=== PATIENT | male | born 1945 | race Caucasian/White ===

== ENCOUNTER 2016-12-19 17:53 | Observation (INO) | payer OTHER ==
[2016-12-19] MEDS ORDERED: Acetaminophen TAB* 325 MG PO ONE (18:31)
[2016-12-19] MEDS ORDERED: Ondansetron INJ* 2 MG/ML VIAL IV ONE (18:31)
[2016-12-19] MEDS ORDERED: Vancomycin(*) 1,000 MG in NS 0.9% 250 ML* 250 ML IVPB ONE (18:33)
[2016-12-19] MEDS ORDERED: Cefepime(*) 2 GM in NS 0.9% 50 ML* 50 ML IVPB ONE (18:33)
[2016-12-19] MEDS ORDERED: NS 0.9% 1000 ML*IV.FLUID IV ONE (18:38)
[2016-12-19 18:49] LABS: Hematocrit 44 % (42-52); Mean Corpuscular HGB Conc 34 g/dl (31-36); Mean Corpuscular Hemoglobin 32 pg (27-31); Mean Corpuscular Volume 95 fL (80-94); Mean Platelet Volume 8 um3 (7.4-10.4); Red Blood Count 4.68 10^6/ul (4.0-5.4); Red Cell Distribution Width 15 % (10.5-15); White Blood Count 15.2 10^3/ul (3.5-10.8)
[2016-12-19 19:05] LABS: ALT 12 U/L (7-52); Albumin 4.1 g/dL (3.2-5.2); Alkaline Phosphatase 48 U/L (34-104); BUN/Creatinine Ratio 17.4 (8-20); Blood Urea Nitrogen 19 mg/dL (6-24); C Reactive Protein 2.86 mg/L (< 5.00); CO2 Carbon Dioxide 25 mmol/L (22-32); Chloride 103 mmol/L (101-111); Creatine Kinase 43 U/L (10-223); EGFR African American 85.8 (>60); EGFR Non-African American 66.7 (>60); Glucose 102 mg/dL (70-100); Sodium 135 mmol/L (133-145); Total Protein 7.1 g/dL (6.4-8.9)
[2016-12-19 19:25] LABS: Anion Gap 7 mmol/L (2-11)
[2016-12-19 19:32] LABS: Erythrocyte Sed Rate 10 mm/Hr (0-40)
--- NOTE | 2016-12-19 19:32 | RAD ---
INDICATION: Near syncope. COMPARISON: June 10, 2013 TECHNIQUE: Dual energy PA and routine lateral views of the chest were obtained. REPORT: Mild prominence of interstitial markings. No pulmonary infiltrate, focal pulmonary lesion, pleural effusion, pneumothorax. The heart, pulmonary vasculature, and mediastinal contours are unremarkable. IMPRESSION: No evidence for acute intrathoracic disease.
[2016-12-19] MEDS ORDERED: Acetaminophen TAB* 325 MG PO PRN (22:39)
[2016-12-19] MEDS ORDERED: Ondansetron INJ* 2 MG/ML VIAL IV PRN (22:39)
[2016-12-19] MEDS ORDERED: traMADol TAB* 50 MG PO PRN (22:41)
[2016-12-19] MEDS ORDERED: NS 0.9% 1000 ML* 1,000 ML IV SCH (22:45)
[2016-12-19 23:18] LABS: TSH (Thyroid Stimulating Horm) 2.49 mcIU/mL (0.34-5.60)
[2016-12-20 00:26] LABS: Urine Bilirubin Negative (Negative); Urine Glucose Negative (Negative); Urine Nitrite Negative (Negative)
--- NOTE | 2016-12-20 00:28 | HP ---
CC: Dr. Bush * HISTORY AND PHYSICAL: DATE OF ADMISSION: 12/19/16 PRIMARY CARE PROVIDER: Dr. Bush. CHIEF COMPLAINT: Nausea and vomiting. HISTORY OF PRESENT ILLNESS: Mr. Draper is a 71-year-old male who approximately 9 days ago had what sounds to be a sebaceous cyst removed from his upper back/ lower neck. This was reportedly sutured closed. The patient was instructed to return today to Dr. Bush's office for removal of the sutures. The patient had the sutures removed and he felt that perhaps there had been some drainage out of the cavity. He believes this to be the case as he felt the nurse dabbing at his back, soaking up some liquid. The patient left Dr. Bush's office to go help a friend work on a truck when he began to have severe intractable vomiting and nausea. The patient then began to have uncontrolled shaking and was sweating. At that point, he decided to come back to the emergency room for evaluation. In the ER, the patient was found to be febrile at 103.3 on arrival. The patient's incision was inspected. This was opened. A cavity was present. Reportedly, a copious amount of very foul smelling purulent material was expressed from the wound. At this point, the patient states that he is feeling much improved and has no issues. PAST MEDICAL HISTORY: 1. Gout. 2. RA. 3. History of PMR. 4. AFib. 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 6. GERD. 7. KACEY. 8. Hypertension. PAST SURGICAL HISTORY: 1. Deviated septum repaired at age 19. 2. Nasal cancer removal greater than 40 years ago. 3. Left eye surgery. 4. Partial colectomy for precancerous polyps. MEDICATIONS: 1. Tramadol 50 mg p.o. q.6 hours p.r.n. pain. 2. Metoprolol XL 25 mg p.o. daily. 3. Methotrexate 6 tabs (15 mg) p.o. weekly. 4. Lisinopril 10 mg p.o. daily. 5. Folic acid 1 mg p.o. daily. 6. Eliquis 5 mg p.o. b.i.d. 7. Allopurinol 300 mg p.o. daily. 8. Ranitidine 150 mg p.o. b.i.d. ALLERGIES: No known drug allergies. FAMILY HISTORY: Both parents are . He is unaware of their medical history. SOCIAL HISTORY: The patient is a nonsmoker. He does not drink alcohol. 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 He is , he has 3 children. He indicates that his daughterNamita would be his healthcare proxy. REVIEW OF SYSTEMS: The patient denies any fevers. He does admit to the shaking chills today. No anorexia. No chest pain. No palpitations. No cough. No shortness of breath. He admits to the nausea and vomiting as above. He does have occasional diarrhea at baseline. No abdominal pain. No hematochezia. No hematuria. No dysuria. No focal weakness or sensory loss. No sudden changes in vision. No dysphagia. No joint pains or muscle pains out of the ordinary. No rashes. No anxiety or depression. PHYSICAL EXAMINATION GENERAL: The patient is a well-developed, elderly male, sitting in the stretcher in no acute distress. VITAL SIGNS: Blood pressure 86/55, pulse 74, respirations 14, temp 99.5, T-max 103.3, O2 sat 96% on 2 L. HEENT: Pupils are equal, they are round. Extraocular muscles are intact. The patient appears to have mild exophthalmos. Oropharynx is clear. Oral mucosa is moist. There is no submandibular, cervical, or supraclavicular adenopathy. Thyroid is not enlarged. No thyroid nodules are noted. PULMONARY: Lungs are clear to auscultation bilaterally. CARDIAC: Normal S1 and S2. Regular rate and rhythm. I do not appreciate any murmurs. ABDOMEN: Bowel sounds are present. Abdomen is soft, nontender, and nondistended. MUSCULOSKELETAL: There is no cyanosis or clubbing of the digits. There is full active range of motion of all 4 extremities. SKIN: Warm and dry. There are no rashes. The patient has an approximately 3/ 4 of an inch to 1 inch vertical incision, midline of the upper back/lower neck. There is mild erythema surrounding this. No purulent material is able to be expressed at this time. NEUROLOGIC: Cranial nerves II through XII are grossly intact. Sensation is intact to light touch throughout. Strength is 5/5 and symmetric in both upper and lower extremities bilaterally. PSYCH: The patient is alert. He is oriented x3. Affect appears appropriate. DIAGNOSTIC STUDIES/LAB DATA: WBC 15.2, hemoglobin 15.0, hematocrit 44, platelets 165. INR 0.98, PTT 28.5. Sodium 135, potassium 4.2, chloride 103, CO2 25, BUN 19, creatinine 1.09, glucose 102, lactic acid 1.1, calcium 9.0, bilirubin 0.9, AST 16, ALT 12, alk phos 48, CPK 43, troponin 0, CRP 2.86, BNP 50 , albumin 4.1. Chest x-ray, no acute intrathoracic disease. EKG reveals normal sinus rhythm without any acute ST-T wave abnormalities. ASSESSMENT AND PLAN: Mr. Draper is a 71-year-old male with a history of rheumatoid arthritis, on methotrexate at baseline, past history of polymyalgia rheumatica, atrial fibrillation, hypertension and obstructive sleep apnea, who presents to the emergency room with intractable nausea and vomiting, which has now since resolved, but was found to have likely cellulitis associated with recent (question sebaceous) cyst removal. 1. Cellulitis and abscess. I suspect the patient likely developed mild infection within the cyst cavity. I found as if when the sutures were removed, copious amount of purulent material was able to be expressed from that cavity. Culture has been sent. Gram-stain reveals 3+ Gram positive cocci. This is Staph aureus and MRSA negative. The patient did have associated severe sepsis with the cellulitis as evidenced by sepsis 2 criteria including tachycardia, fever, leukocytosis, and hypotension. The patient received 2 L of normal saline bolus while in the emergency room. The patient's hypotension has since resolved. Blood cultures have been sent. Lactic acid was normal. The patient was started in the emergency room on vancomycin and cefepime; however, I will downgrade this to cefazolin 2 g IV q.8 hours for now. We can await the culture data. If the patient remains afebrile and continues to show improvement in his labs and vital signs, perhaps he can be discharged home tomorrow. Based on sepsis 3 criteria, the patient does not meet for sepsis as his sepsis score is only 1. However, the [place] [employer] surviving sepsis campaign indicators were met. 2. Hypertension. Again, likely this is related to the patient's infection. Subsequent blood pressure while I was in the patient's room was normal at 130/ 60s. The patient does not feel lightheaded or dizzy at this point. He did receive again 2 L bolus normal saline in the emergency room and will continue on 100 mL per hour for 1 more liter. 3. Nausea and vomiting. This has resolved. I suspect this was related to his infection. We will monitor his symptoms. Zofran will be ordered. 4. Hypertension. The patient's blood pressure earlier in the ER was low, now improved. I will order his usual home antihypertensives; however, I have added hold parameters to these. 5. Atrial fibrillation. Currently, the patient is in normal sinus rhythm. He will be maintained on his usual dose of metoprolol XL and Eliquis. 6. Rheumatoid arthritis. The patient ordinarily takes methotrexate. This likely should be held for the next 1 week, then he can resume this as his infection will likely have improved by that time. 7. DVT prophylaxis. According to the Adult Thrombosis Prophylaxis Risk Factor Assessment Guide, the patient has a total risk factor score of 5, making him high risk. He is already on Eliquis and this will act as his DVT prophylaxis. 8. Code status is full. TIME SPENT: Sixty-five minutes were spent admitting this patient. [id number]/[facility] #: [id number] VIVIENNE
[2016-12-20] MEDS: ceFAZolin 2 GM PREMIX (*) 50 ML IVPB SCH ×2 (05:59→13:20)
[2016-12-20] MEDS ORDERED: ceFAZolin 2 GM PREMIX (*) 100 ML IVPB SCH (06:00)
[2016-12-20] MEDS ORDERED: Metoprolol Succinate XL TAB* 25 MG PO SCH (09:00)
[2016-12-20] MEDS ORDERED: Lisinopril TAB* 10 MG PO SCH (09:00)
[2016-12-20] MEDS ORDERED: Allopurinol TAB* 300 MG PO SCH (09:00)
[2016-12-20] MEDS ORDERED: Apixaban* 5 MG TAB PO SCH (09:00)
[2016-12-20] MEDS ORDERED: Famotidine TAB* 20 MG PO SCH (09:00)
[2016-12-20] MEDS ORDERED: Folic Acid TAB* 1 MG PO SCH (09:00)
[2016-12-20 16:45] VITALS: BP 115/59
[2016-12-20 17:06] LABS: Hematocrit 42 % (42-52); Hemoglobin 14.2 g/dl (14.0-18.0); Mean Corpuscular HGB Conc 34 g/dl (31-36); Mean Corpuscular Hemoglobin 33 pg (27-31); Mean Corpuscular Volume 96 fL (80-94); Mean Platelet Volume 8 um3 (7.4-10.4); Red Blood Count 4.39 10^6/ul (4.0-5.4); Red Cell Distribution Width 15 % (10.5-15)
--- NOTE | 2016-12-20 17:54 | PN ---
Subjective Date of Service: 12/20/16 Interval History: Patient seen and examined at bedside. Denies fever, chills, shortness of breath , chest discomfort, N/V/D. Pt states that he feels much better today, then he did yesterday. He is very anxious to be discharged. Family History: Unchanged from Admission Social History: Unchanged from Admission Past Medical History: Unchanged from Admission Objective Active Medications: Acetaminophen (Tylenol Tab*) 650 mg PO Q4H PRN Reason: PAIN Allopurinol (Zyloprim Tab*) 300 mg PO DAILY RENATO Apixaban (Eliquis*) 5 mg PO BID RENATO mg Famotidine (Pepcid Tab*) 20 mg PO BID RENATO Folic Acid (Folvite Tab*) 1 mg PO DAILY RENATO Cefazolin Sodium/Dextrose (Kefzol 2 Gm Premix(*)) 50 mls @ 100 mls/hr IVPB Q8H RENATO Lisinopril (Prinivil Tab*) 10 mg PO DAILY RENATO Metoprolol Succinate (Toprol Xl Tab*) 25 mg PO DAILY RENATO Ondansetron HCl (Zofran Inj*) 4 mg IV Q6H PRN Reason: NAUSEA Tramadol HCl (Ultram*) 50 mg PO Q6HR PRN Reason: PAIN Vital Signs 12/19/16 12/19/16 12/20/16 23:41 23:45 00:43 Temperature 98.3 F 98.3 F Pulse Rate 70 70 Respiratory 20 20 20 Rate Blood Pressure 118/64 118/64 (mmHg) O2 Sat by Pulse 99 99 99 Oximetry 12/20/16 12/20/16 12/20/16 03:19 07:37 07:50 Temperature 98.2 F 97.6 F Pulse Rate 60 57 Respiratory 16 20 Rate Blood Pressure 113/44 107/44 (mmHg) O2 Sat by Pulse 100 100 100 Oximetry 12/20/16 12/20/16 12/20/16 07:55 12:27 15:24 Temperature 98.0 F 98.1 F Pulse Rate 57 67 Respiratory 21 18 Rate Blood Pressure 102/46 115/59 (mmHg) O2 Sat by Pulse 96 98 Oximetry Oxygen Devices in Use Now: None Appearance: NAD, sitting up on the side of the bed Ears/Nose/Mouth/Throat: Mucous Membranes Moist Respiratory: Symmetrical Chest Expansion and Respiratory Effort, Clear to Auscultation Cardiovascular: NL Sounds; No Murmurs; No JVD, RRR Abdominal: NL Sounds; No Tenderness; No Distention Extremities: No Edema Skin: - - ~ 3/4 to 1 inch incision to the midline of his upper back, mild eryethema noted around the incision. The incision is open with a pocket ~ 1 cm deep and undermining ~ 1 cm from 1 to 5 o'clock Neurological: Alert and Oriented x 3, NL Muscle Strength and Tone Lines/Tubes/Other Access: Clean, Dry and Intact Peripheral IV - site benign Result Diagrams: 12/20/16 16:53 12/19/16 19:30 Assess/Plan/Problems-Billing Assessment: Mr. Draper is a 71 yo male with PMH significant for RA on methotrexate, PMR, afib, HTN and KACEY who presented to the emergency room with intractable nausea and vomiting. He was found to have likely cellulitis associated with recent cyst removal. - Patient Problems (1) Cellulitis and abscess of trunk Code(s): L03.319 - CELLULITIS OF TRUNK, UNSPECIFIED; L02.219 - CUTANEOUS ABSCESS OF TRUNK, UNSPECIFIED SNOMED Code(s): 069031497 Comment: - Suspect this is a mild infection within the cyst cavity - Afebrile since admission and leukocytosis resolved - Wound culture negative day 1, but with 3+ gram positive cocci, staph aureus and MRSA negative - Blood cultures pending - Change to clindamycin - Daily packing changes (2) Sepsis Comment: - Meeting SIRS criteria on admission with tachycardia, fever and leukocytosis - Not meeting qSofa criteria on admission, 1 point (low BP) - Resolved (3) Nausea and vomiting Code(s): R11.2 - NAUSEA WITH VOMITING, UNSPECIFIED SNOMED Code(s): 01804136 Comment: - Resolved (4) HTN (hypertension) Code(s): I10 - ESSENTIAL (PRIMARY) HYPERTENSION SNOMED Code(s): 89211340 Comment: - Hypotensive at times - SBP 80-130's - Continue Lisinopril (5) Paroxysmal a-fib Code(s): I48.0 - PAROXYSMAL ATRIAL FIBRILLATION SNOMED Code(s): 713494719 Comment: - Heart rate regular - Continue metoprolol and eliquis (6) Rheumatoid arthritis Current Visit: No Status: Chronic Code(s): M06.9 - RHEUMATOID ARTHRITIS, UNSPECIFIED SNOMED Code(s): 14244959 Comment: - Hold methotrexate for at least a week (7) DVT prophylaxis Code(s): BUH2936 - SNOMED Code(s): 126682758 Comment: - Continue Eliquis (8) Full code status Code(s): Z78.9 - OTHER SPECIFIED HEALTH STATUS SNOMED Code(s): 202492837 Status and Disposition: OBV. Stable for discharge to home today.
--- NOTE | 2016-12-20 21:51 | ED ---
Emanuel Jorgensen Angela, scribed for Elli Aranda MD on 12/19/16 at 2035 . Progress - Progress Note Progress Note: This pt is a 71 y/o male presenting to [facility] c/o N/V since earlier today. He states he had a fever earlier today. He reports a recent I&D by his PCP on a cyst on his upper back about 9 days ago. PMHx: HTN. Pt denies diabetes, cardiac disease. This pt was signed out from Dr. William, pending disposition, awaiting chest XR. Pt will be admitted in stable condition. - Results/Orders Results/Orders: Chest XR (as read by the radiologist): IMPRESSION: No evidence for acute intrathoracic disease. ED physician has reviewed this radiology report and agrees. Re-Evaluation - Re-Evaluation First Eval Re-Evaluation Time: 22:00 Course/Dx - Diagnoses Provider Diagnoses: Cellulitis - Provider Notifications Discussed Care Of Patient With: Ileana Womack Time Discussed With Above Provider: 20:04 Instructed by Provider To: Admit As Inpatient - I discussed the pt's case with Dr. Womack. She has agreed to admit the pt. The documentation as recorded by the Emanuel briscoe Angela accurately reflects the service I personally performed and the decisions made by , Elli Aranda MD.
--- NOTE | 2016-12-21 04:16 | DS ---
CC: Dr. Bush * DISCHARGE SUMMARY: DATE OF ADMISSION: 12/19/16 DATE OF DISCHARGE: 12/20/16 ATTENDING PHYSICIAN: Dr. Nirmal Miranda * (dictated by Maureen Weinberg NP) PRIMARY CARE PROVIDER: Dr. Clarence Bush. PRIMARY DIAGNOSES: 1. Cellulitis with abscess. 2. Sepsis according to the [place] sepsis campaign, resolved. 3. Intractable nausea, vomiting, resolved. SECONDARY DIAGNOSES: 1. Hypertension. 2. Paroxysmal atrial fibrillation. 3. Rheumatoid arthritis. STUDIES WHILE IN THE HOSPITAL: Chest x-ray on 12/19/16. Radiologist impression : No evidence for acute intrathoracic disease. DISCHARGE MEDICATIONS: New home medications: 1. Clindamycin 300 mg oral 3 times daily for 10 days. 2. Ranitidine 150 mg oral twice daily. 3. Allopurinol 300 mg oral daily. 4. Eliquis 5 mg oral twice daily. 5. Folic acid 1 mg oral daily. 6. Lisinopril 10 mg oral daily. 7. Metoprolol succinate 25 mg oral daily. 8. Tramadol 50 mg oral every 6 hours as needed for pain. HISTORY OF PRESENT ILLNESS/HOSPITAL COURSE: Mr. Draper is a 71-year-old male with past medical history significant for rheumatoid arthritis, history of polymyalgia rheumatica, atrial fibrillation, GERD, KACEY, and hypertension, who approximately 9 days ago had a cyst removed from his upper back. It was sutured closed. The patient reports being instructed to return to Dr. Bush's office for suture removal on his day of admission. The sutures were removed and I believe there was some sort of drainage out of the cavity. The patient reports he is unaware of what the drainage look like. He left Dr. Bush's office and developed severe intractable nausea and vomiting. The patient also began to have uncontrolled shaking and sweating. At that point, he decided to come back to the emergency room for further evaluation. While in the emergency room, the patient was found to be febrile with a temperature of 103.3 on arrival. The patient's incision was inspected and opened. There was a cavity present with reportedly a copious amount of foul smelling purulent material expressed from the wound. A wound culture was obtained. The patient was initially treated with vancomycin and cefepime. Blood cultures were obtained. The patient was noted to have leukocytosis with the white blood cell count of 15.2. His other labs were fairly unremarkable. He had a chest x-ray showing no acute disease. He had an EKG showing normal sinus rhythm. Hospitalists were asked to evaluate the patient for admission. While in the hospital, the patient continued to improve and feel better. Again , his nausea and vomiting had been resolved since in the emergency room. His blood pressures were slightly hypotensive, although they were improved throughout his stay. He had repeat blood work showing no resolution of his leukocytosis today. In addition, the patient was afebrile since his admission. He had a lactic acid that was normal. It is to note that upon initial presentation that he was meeting SIRS criteria with leukocytosis, fever, and tachycardia. He was not meeting a sepsis criteria based on sepsis 3 criteria. His score was only 1. However, he was meeting the [place] surviving sepsis campaign indicators. The patient's erythema around his incision continued to improve. The wound was probed and was found to be approximately 1 cm deep with an approximate 1 cm undermining area from approximately 1 o'clock to 5 o'clock. Packing was placed in the patient's wound. Mr. Draper is stable for discharge to home today. Vital signs are as follows: Temperature 98.1, heart rate 67, respiratory rate 18, O2 sat 98% on room air, blood pressure 115/59. DISCHARGE PLAN: Mr. Draper will be discharged to home today. Activity as tolerated. Regular diet. As far as the patient's cellulitis with abscess, he has packing in place. This should be changed daily. I did instruct his daughter on how to do this in the event that she needs to do packing changes. The patient was also placed on clindamycin 300 mg oral 3 times daily for 10 days. He has a followup appointment with Dr. Arizmendi on 12/21/16, at 12 p.m. for a followup appointment and packing change. There was a tentative plan made at the time of discharge to possibly set the patient up with a nurse visit on Friday for another packing change as there were no provider appointments available for Friday. As far as the patient's history of rheumatoid arthritis, he should hold his methotrexate for at least 1 week while he recovers from this infection. As far as the atrial fibrillation, he has been continued on his metoprolol and Eliquis. For the patient's history of hypertension, he has been continued on his lisinopril. For the patient's history of gout, he is continued on his allopurinol. For the patient's history of GERD, he has been continued on his home ranitidine. The patient has been asked to return to the emergency room for any chest pain, shortness of breath, or concerns for reoccurrence of his infection if he is unable to get into his primary care doctor's office. This is a summarized report of a complex medical history and hospital stay. For further details, please see the entire medical record. TIME SPENT: Time for this discharge was approximately 60 minutes, greater than half of that was spent [id number] with the patient and his daughter discussing discharge plans and instructions in addition to demonstrating how to do a packing change. CONDITION ON DISCHARGE: Stable. MAUREEN WEINBERG NP [id number]/[facility] #: [id number] VIVIENNE
--- NOTE | 2016-12-21 18:32 | ED ---
Chidi Jorgensen Alfonso, scribed for Oneil William MD on 12/19/16 at 1830 . Complex/Multi-Sys Presentation - HPI Summary HPI Summary: This patient is a 71 year old M presenting to [facility] with a chief complaint of N/ V since earlier today. The patient rates the pain 0/10 in severity. Symptoms aggravated by nothing. Symptoms alleviated by nothing. Patient reports fever, and chills. He reports a recent I&D at his upper back. - History Of Current Complaint Chief Complaint: EDNauseaVomitDiarrh Hx Obtained From: Patient Onset/Duration: Sudden Onset, Lasting Hours, Still Present Timing: Constant Aggravating Factor(s): nothing Alleviating Factor(s): nothing Associated Signs And Symptoms: Positive: Nausea, Vomiting, Fever Related History: Similar Episode/Diagnosed As: - chills - Allergies/Home Medications Allergies/Adverse Reactions: Allergies Allergy/AdvReac Type Severity Reaction Status Date / Time No Known Allergies Allergy Verified 12/19/16 18:51 PMH/Surg Hx/FS Hx/Imm Hx Cardiovascular History: Reports: Hx Hypertension - ON DAILY MEDS, Other Cardiovascular Problems/Disorders - Hx ATRIAL FIB, ON COUMADIN GI History: Reports: Hx Gastroesophageal Reflux Disease - DAILY MEDS Musculoskeletal History: Reports: Hx Arthritis Sensory History: Reports: Hx Hearing Aid - BILATERAL, NONE ON SURGERY DAY Neurological History: Reports: Other Neuro Impairments/Disorders - 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 2011 SMALL BOWEL RESECTION, PRE CANCER CELLS RT [facility]. 2000s BLADDER BIOPSY [facility] Hx Anesthesia Reactions: No Infectious Disease History: No Infectious Disease History: Denies: Traveled Outside the [place] in Last 30 Days - Family History Known Family History: Positive: Other - R&NC - Social History Alcohol Use: Occasionally Alcohol Amount: a couple of beers a day Substance Use Type: Reports: None Smoking Status (MU): Never Smoked Tobacco Have You Smoked in the Last Year: No Review of Systems Positive: Fever, Chills Positive: Vomiting, Nausea All Other Systems Reviewed And Are Negative: Yes Physical Exam - Summary Physical Exam Summary: VITAL SIGNS: Reviewed. GENERAL: Patient is a well-developed and nourished male who is lying comfortable in the stretcher. Patient is not in any acute respiratory distress. HEAD AND FACE: No signs of trauma. No ecchymosis, hematomas or skull depressions. No sinus tenderness. EYES: PERRLA, EOMI x 2, No injected conjunctiva, no nystagmus. EARS: Hearing grossly intact. Ear canals and tympanic membranes are within normal limits. MOUTH: Oropharynx within normal limits. NECK: Supple, trachea is midline, no adenopathy, no JVD, no carotid bruit, no c- spine tenderness, neck with full ROM. CHEST: Symmetric, no tenderness at palpation LUNGS: Clear to auscultation bilaterally. No wheezing or crackles. CVS: Tachycardia. Regular rhythm, S1 and S2 present, no murmurs or gallops appreciated. ABDOMEN: Soft, non-tender. No signs of distention. No rebound no guarding, and no masses palpated. Bowel sounds are normal. EXTREMITIES: FROM in all major joints, no edema, no cyanosis or clubbing. NEURO: Alert and oriented x 3. No acute neurological deficits. Speech is normal and follows commands. SKIN: Dry and warm. Wound at upper back where a sebaceous cyst was removed with purulent discharge, foul odor, and erythema. Triage Information Reviewed: Yes Vital Signs On Initial Exam: Initial Vitals Temp Pulse Resp BP Pulse Ox 103.3 F 99 16 134/74 94 12/19/16 18:00 12/19/16 18:00 12/19/16 18:00 12/19/16 18:00 12/19/16 18:00 Vital Signs Reviewed: Yes - Deep Coma Scale Coma Scale Total: 15 Diagnostics - Vital Signs Vital Signs Temp Pulse Resp BP Pulse Ox 12/19/16 18:02 89 93 12/19/16 18:00 103.3 F 99 16 134/74 94 - Laboratory Lab Results: Lab Results 12/19/16 12/19/16 12/19/16 Range/Units 18:40 18:40 18:40 WBC (3.5-10.8) 10^3/ul RBC (4.0-5.4) 10^6/ul Hgb (14.0-18.0) g/dl Hct (42-52) % MCV (80-94) fL MCH (27-31) pg MCHC (31-36) g/dl RDW (10.5-15) % Plt Count (150-450) 10^3/ul MPV (7.4-10.4) um3 Neut % (Auto) (38-83) % Lymph % (Auto) (25-47) % Walker % (Auto) (1-9) % Eos % (Auto) (0-6) % Baso % (Auto) (0-2) % Absolute Neuts (auto) (1.5-7.7) 10^3/ul Absolute Lymphs (auto) (1.0-4.8) 10^3/ul Absolute Monos (auto) (0-0.8) 10^3/ul Absolute Eos (auto) (0-0.6) 10^3/ul Absolute Basos (auto) (0-0.2) 10^3/ul Absolute Nucleated RBC 10^3/ul Nucleated RBC % ESR (0-40) mm/Hr INR (Anticoag Therapy) 0.98 (0.89-1.11) APTT 28.5 (26.0-36.3) seconds Fibrinogen 368 (110.8-404.3) mg/dL Sodium 135 (133-145) mmol/L Potassium TNP Chloride 103 (101-111) mmol/L Carbon Dioxide 25 (22-32) mmol/L Anion Gap 7 (2-11) mmol/L BUN 19 (6-24) mg/dL Creatinine 1.09 (0.67-1.17) mg/dL Est GFR ( Amer) 85.8 (>60) Est GFR (Non-Af Amer) 66.7 (>60) BUN/Creatinine Ratio 17.4 (8-20) Glucose 102 H (70-100) mg/dL Lactic Acid (0.5-2.0) mmol/L Calcium 9.0 (8.6-10.3) mg/dL Total Bilirubin 0.90 (0.2-1.0) mg/dL AST TNP ALT 12 (7-52) U/L Alkaline Phosphatase 48 (34-104) U/L Total Creatine Kinase 43 (10-223) U/L Troponin I 0.00 (<0.04) ng/mL C-Reactive Protein 2.86 (< 5.00) mg/L B-Natriuretic Peptide 50 ( - 100) pg/mL Total Protein 7.1 (6.4-8.9) g/dL Albumin 4.1 (3.2-5.2) g/dL Globulin 3.0 (2-4) g/dL Albumin/Globulin Ratio 1.4 (1-3) TSH 2.49 (0.34-5.60) mcIU/mL 12/19/16 12/19/16 12/19/16 Range/Units 18:40 18:40 19:30 WBC 15.2 H (3.5-10.8) 10^3/ul RBC 4.68 (4.0-5.4) 10^6/ul Hgb 15.0 (14.0-18.0) g/dl Hct 44 (42-52) % MCV 95 H (80-94) fL MCH 32 H (27-31) pg MCHC 34 (31-36) g/dl RDW 15 (10.5-15) % Plt Count 165 (150-450) 10^3/ul MPV 8 (7.4-10.4) um3 Neut % (Auto) 92.4 H (38-83) % Lymph % (Auto) 2.8 L (25-47) % Walker % (Auto) 4.6 (1-9) % Eos % (Auto) 0 (0-6) % Baso % (Auto) 0.2 (0-2) % Absolute Neuts (auto) 14.0 H (1.5-7.7) 10^3/ul Absolute Lymphs (auto) 0.4 L (1.0-4.8) 10^3/ul Absolute Monos (auto) 0.7 (0-0.8) 10^3/ul Absolute Eos (auto) 0 (0-0.6) 10^3/ul Absolute Basos (auto) 0 (0-0.2) 10^3/ul Absolute Nucleated RBC 0 10^3/ul Nucleated RBC % 0 ESR 10 (0-40) mm/Hr INR (Anticoag Therapy) (0.89-1.11) APTT (26.0-36.3) seconds Fibrinogen (110.8-404.3) mg/dL Sodium (133-145) mmol/L Potassium 4.2 Chloride (101-111) mmol/L Carbon Dioxide (22-32) mmol/L Anion Gap (2-11) mmol/L BUN (6-24) mg/dL Creatinine (0.67-1.17) mg/dL Est GFR ( Amer) (>60) Est GFR (Non-Af Amer) (>60) BUN/Creatinine Ratio (8-20) Glucose (70-100) mg/dL Lactic Acid 1.1 (0.5-2.0) mmol/L Calcium (8.6-10.3) mg/dL Total Bilirubin (0.2-1.0) mg/dL AST 16 ALT (7-52) U/L Alkaline Phosphatase (34-104) U/L Total Creatine Kinase (10-223) U/L Troponin I (<0.04) ng/mL C-Reactive Protein (< 5.00) mg/L B-Natriuretic Peptide ( - 100) pg/mL Total Protein (6.4-8.9) g/dL Albumin (3.2-5.2) g/dL Globulin (2-4) g/dL Albumin/Globulin Ratio (1-3) TSH (0.34-5.60) mcIU/mL Result Diagrams: 12/20/16 16:53 12/19/16 19:30 Lab Statement: Any lab studies that have been ordered have been reviewed, and results considered in the medical decision making process. - Radiology CXR Radiology Interpretation Completed By: Radiologist - Pending official interpretation from radiologist. See [employer]. - EKG 5254 Cardiac Rate: Tachycardia - BPM 100 EKG Rhythm: Sinus Tachycardia EKG Interpretation: ST depression V4-V6 EKG Comparison: No Significant Change - 06/10/13 Complex Multi-Symp Course/Dx Assessment/Plan: This patient is a 71 year old M presenting to [facility] with a chief complaint of N/V since earlier today. The patient rates the pain 0/10 in severity. Symptoms aggravated by nothing. Symptoms alleviated by nothing. Patient reports fever, and chills. He reports a recent I&D at his upper back. I was asked by the nurse to see this patient because he is tachycardia and febrile. There is a wound at the upper back which seems infected with purulent discharge, foul odor, and erythema. Initially we started with IV fluids, Vancomycin, and Cefepime. I did order blood work including blood culture, and CXR, and an EKG. At this point the patient is awaiting the test results. He will be signed out at shift change to Dr. Aranda to follow up the test results and work up and management. The patient is alert and oriented x3. - Diagnoses Provider Diagnoses: Cellulitis, Fever, r/o sepsis Discharge - Discharge Plan Condition: Stable Disposition: OTHER Discharge Disposition Comment: Signed out at shift change, pending dispo, awaiting CXR The documentation as recorded by the Chidi briscoe Alfonso accurately reflects the service I personally performed and the decisions made by , Oneil William MD.
== END 2016-12-20 17:45 | disposition home or self-care (01) ==
LOC: ED 17:53 → MED 22:39
PROVIDERS: ADMIT Hospitalist; ATTEND Internal Medicine
DX: T81.4XXA Infection following a procedure, initial encounter (principal); A41.9 Sepsis, unspecified organism; R11.2 Nausea with vomiting, unspecified; I48.0 Paroxysmal atrial fibrillation; I10 Essential (primary) hypertension; M06.9 Rheumatoid arthritis, unspecified; Z79.899 Other long term (current) drug therapy; Z79.01 Long term (current) use of anticoagulants; R00.0 Tachycardia, unspecified; R50.9 Fever, unspecified
CPT/HCPCS: 36415; 71020; 80053; 81003; 82550; 83605; 83880; 84443; 84484; 85025; 85384; 85610; 85652; 85730; 86140; 87040; 87070; 87205; 87640; 87641; 93005; 96365; 99285; A9270-GY; G0378; J0690; J0692; J2405; J3370